=== PATIENT | female | born 2000 | race Two or more races ===

== ENCOUNTER 2021-10-08 17:29 | Inpatient (IN) | payer OTHER ==
[~2021-10-08] VITALS: Ht 170.2 cm; Wt 1.8 kg
== END 2021-10-14 17:14 | disposition home or self-care (01) | DRG 807 ==
LOC: LDR 17:29 → OB/GYN 17:29 → LDR 17:35 → OB/GYN 10-10 10:51
PROVIDERS: ADMIT Obstetrics & Gynecology; ATTEND Obstetrics & Gynecology
PROC: 4A1HXCZ Monitoring of Products of Conception, Cardiac Rate, External Approach (ICD-10-PCS; 2021-10-08)
PROC: 10E0XZZ Delivery of Products of Conception, External Approach (ICD-10-PCS; principal; 2021-10-09)
PROC: BY4FZZZ Ultrasonography of Third Trimester, Single Fetus (ICD-10-PCS; 2021-10-09)
DX: O60.23X0 Term delivery with preterm labor, third trimester, not applicable or unspecified (principal); Z37.0 Single live birth; O26.843 Uterine size-date discrepancy, third trimester; O36.8130 Decreased fetal movements, third trimester, not applicable or unspecified; O60.03 Preterm labor without delivery, third trimester; O26.853 Spotting complicating pregnancy, third trimester; Z20.822 Contact with and (suspected) exposure to COVID-19; Z3A.33 33 weeks gestation of pregnancy